=== PATIENT | female | born 1985 ===

== ENCOUNTER 2018-02-01 08:56 | Emergency (ER) | payer BC, OTHER ==
[2018-02-01 09:06] VITALS: RESP 18; TEMP 97.9
[2018-02-01 09:28] VITALS: BMI 29.9
--- NOTE | 2018-02-01 10:06 | ED PDOC ---
Arrival/HPI - General Chief Complaint: Headache Time Seen by Provider: 02/01/18 09:18 Historian: Patient - History of Present Illness Narrative History of Present Illness (Text): 02/01/18 10:03 32yo female with no PMHx who present with complaint of occipital headache x2days. States she have had headache in the past, but it was worse this morning. States headache was throbbing, but currently improved without medication. +Photophobia, nausea. Denies vomiting, focal weakness, trauma, dizziness, neck pain, rash, any other complaint. Past Medical History - Provider Review Nursing Documentation Reviewed: Yes - Infectious Disease Hx of Infectious Diseases: None - Tetanus Immunization Tetanus Immunization: Unknown - Past Medical History Past Medical History: No Previous - Pulmonary Hx Bronchitis: Yes Hx Pneumonia: Yes - Neurological Hx Headaches: Yes - Psychiatric Hx Psychophysiologic Disorder: No Hx Depression: No Hx Emotional Abuse: No Hx Physical Abuse: No Hx Substance Use: No - Past Surgical History Past Surgical History: No Previous - Surgical History Hx Section: Yes Other/Comment: ECTOPIC - Anesthesia Hx Anesthesia: No Hx Anesthesia Reactions: No Hx Malignant Hyperthermia: No - Suicidal Assessment Feels Threatened In Home Enviroment: No Family/Social History - Physician Review Nursing Documentation Reviewed: Yes Family/Social History: Unknown Family HX Smoking Status: Heavy Smoker > 10 Cigarettes Daily Hx Alcohol Use: Yes (ocassionally) Hx Substance Use: No Hx Substance Use Treatment: No Allergies/Home Meds Allergies/Adverse Reactions: Allergies No Known Allergies Allergy (Verified 07/16/15 16:28) Review of Systems - Physician Review All systems were reviewed & negative as marked: Yes - Review of Systems Constitutional: Normal Eyes: Normal ENT: Normal Respiratory: Normal Cardiovascular: Normal Gastrointestinal: Normal Genitourinary Female: Normal Musculoskeletal: Normal Skin: Normal Neurological: Headache. absent: Dizziness, Focal Weakness, Gait Changes, Speech Changes Endocrine: Normal Hemo/Lymphatic: Normal Psychiatric: Normal Physical Exam Vital Signs Reviewed: Yes Vital Signs Temp Pulse Resp BP Pulse Ox 02/01/18 09:05 97.9 F 70 18 118/70 100 Temperature: Afebrile Blood Pressure: Normal Pulse: Regular Respiratory Rate: Normal Appearance: Positive for: Well-Appearing, Non-Toxic, Comfortable Pain Distress: None Mental Status: Positive for: Alert and Oriented X 3 - Systems Exam Head: Present: Atraumatic, Normocephalic Pupils: Present: PERRL Extroacular Muscles: Present: EOMI Conjunctiva: Present: Normal Mouth: Present: Moist Mucous Membranes Neck: Present: Normal Range of Motion Respiratory/Chest: Present: Clear to Auscultation, Good Air Exchange. No: Respiratory Distress, Accessory Muscle Use Cardiovascular: Present: Regular Rate and Rhythm, Normal S1, S2. No: Murmurs Abdomen: No: Tenderness, Distention, Peritoneal Signs Back: Present: Normal Inspection Upper Extremity: Present: Normal Inspection. No: Cyanosis, Edema Lower Extremity: Present: Normal Inspection. No: Edema Neurological: Present: GCS=15, CN II-XII Intact, Speech Normal, Motor Func Grossly Intact, Normal Sensory Function, Normal Cerebellar Funct, Norm Deep Tendon Reflexes, Gait Normal, Memory Normal, Normal 2Pt Descrimination, Other ( No focal neurological deficit) Skin: Present: Warm, Dry, Normal Color. No: Rashes Psychiatric: Present: Alert, Oriented x 3, Normal Insight, Normal Concentration Medical Decision Making ED Course and Treatment: 02/01/18 11:09 PT in ED for stated history. She was neurologically intact in ED. On re evaluation she notes that her headache resolved with medication in ED. Head Ct - Negative Result was DW the pt and she was DC home with Ibuprofen. referred to a Neuro - RAD Interpretation Radiology Orders: 02/01/18 09:26 HEAD W/O CONTRAST [CT] Stat - Medication Orders Current Medication Orders: Discontinued Medications Metoclopramide HCl (Reglan) 10 mg PO STAT STA Stop: 02/01/18 09:28 Last Admin: 02/01/18 09:46 Dose: 10 mg Tramadol HCl (Ultram) 50 mg PO STAT STA Stop: 02/01/18 09:28 Last Admin: 02/01/18 09:46 Dose: 50 mg GUNJAN Pain Assessment Document 02/01/18 09:46 GMD (Rec: 02/01/18 09:46 GMD [facility] [id number]) Pain Reassessment Is this a pain reassessment? No Presence of Pain Presence of Pain Yes Disposition/Present on Arrival - Present on Arrival Any Indicators Present on Arrival: No History of DVT/PE: No History of Uncontrolled Diabetes: No Urinary Catheter: No History of Decub. Ulcer: No History Surgical Site Infection Following: None - Disposition Have Diagnosis and Disposition been Completed?: Yes Diagnosis: Headache Disposition: HOME/ ROUTINE Disposition Time: 11:05 Patient Problems: Current Active Problems Problem Status Onset Headache Acute Condition: STABLE Discharge Instructions (ExitCare): Headache, Adult Additional Instructions: Follow up with your Doctor/Neurologist Return to ED for any new or worsening symptoms Prescriptions: Ibuprofen [Motrin Tab] 600 mg PO Q6 #15 tab Referrals: Rashi Carter MD [Staff Provider] - Follow up with primary Forms: [employer] (Hebrew)
--- NOTE | 2018-02-01 10:59 | CT ---
PROCEDURE: CT HEAD WITHOUT CONTRAST. HISTORY: Migraine headache COMPARISON: None available. TECHNIQUE: Contiguous helical/ transaxial computed tomography images were obtained through the head/brain without intravenous contrast. Radiation dose: Total exam DLP = 904.64 mGy-cm. This CT exam was performed using one or more of the following dose reduction techniques: Automated exposure control, adjustment of the mA and/or kV according to patient size, and/or use of iterative reconstruction technique. FINDINGS: HEMORRHAGE: No acute parenchymal, subarachnoid nor extra-axial hemorrhage. BRAIN: No evidence of large acute infarct. No obvious parenchymal nor extra-axial masses or collections. Ventricular and sulcal size are within range of normal for this patient's stated age. VENTRICLES: No obstructive hydrocephalus. CALVARIUM: There are no acute calvarial fractures. Tiny radiopaque density within the left parietal scalp may represent tiny calcification or possibly a radiopaque foreign body such as glass or gravel. PARANASAL SINUSES: The frontal sinuses are underpneumatized/hypoplastic. The remaining visualized paranasal sinuses well-developed and currently well-aerated. No fluid levels seen to suggest acute sinusitis. No significant mucoperiosteal inflammatory changes. MASTOID AIR CELLS: Unremarkable as visualized. No inflammatory changes. OTHER FINDINGS: Orbits and contents unremarkable IMPRESSION: No acute intracranial hemorrhage.
[2018-02-01 11:11] VITALS: BP 116/72; PULSE 68; O2SAT 97
== END 2018-02-01 11:11 | disposition home or self-care (01) ==
LOC: ED 08:56
DX: R51 Headache (principal); F17.210 Nicotine dependence, cigarettes, uncomplicated